=== PATIENT | male | born 1975 | race American Indian/Alaskan Native ===

== ENCOUNTER 2018-05-11 14:21 | Emergency (ER) | payer BC ==
[2018-05-11 14:58] LABS: ABS Basophils 0.1 10^3/ul (0-0.2); ABS Eosinophils 0 10^3/ul (0-0.6); ABS Monocytes 0.5 10^3/ul (0-0.8); ABS Neutrophils 5.9 10^3/ul (1.5-7.7); ABS Nucleated RBC 0 10^3/ul; Eosinophil % 0.2 % (0-6); Hematocrit 44 % (42-52); Hemoglobin 15.1 g/dl (14.0-18.0); Mean Corpuscular HGB Conc 35 g/dl (31-36); Mean Corpuscular Hemoglobin 30 pg (27-31); Mean Corpuscular Volume 86 fL (80-94); Mean Platelet Volume 7.2 um3 (7.4-10.4); Nucleated Red Blood Cells % 0.2; Platelet Count 253 10^3/ul (150-450); Red Blood Count 5.12 10^6/ul (4.0-5.4); Red Cell Distribution Width 12 % (10.5-15); White Blood Count 7.4 10^3/ul (3.5-10.8)
[2018-05-11 15:09] LABS: INR 1.01 (0.77-1.02)
[2018-05-11 15:15] LABS: EGFR Non-African American 84.9 (>60)
--- NOTE | 2018-05-11 16:15 | RAD ---
INDICATION: Chest pain and palpitations COMPARISON: None TECHNIQUE: Single AP portable view of the chest was obtained. FINDINGS: Image quality is compromised due to the relative inferiority of a portable chest x-ray. The heart and mediastinum exhibit normal size and contour. The lungs are grossly clear. There is no evidence of a large pleural effusion. Visualized bones are normal for the patient's age. IMPRESSION: No radiographic evidence for acute cardiopulmonary abnormality on this portable chest x-ray.
[2018-05-11 17:18] LABS: Urine Appearance Clear; Urine Blood Negative (Negative); Urine Color Straw; Urine Ketones 1+ (Negative); Urine Protein Negative (Negative); Urine Specific Gravity 1.006 (1.010-1.030); Urine Urobilinogen Negative (Negative)
[2018-05-11 19:03] VITALS: BP 150/94
--- NOTE | 2018-05-12 01:40 | ED ---
Hany Paredes Gabriel, scribed for Marcella Ballard MD on 05/11/18 at 1607 . Palpitations / Dysrhythmia - HPI Summary HPI Summary: This patient is a 42 year old M BIBA to [facility] accompanied by his with a chief complaint of palpitations that occurred at 1300 today and lasted 5-10 minutes. The patient has been wearing a Holter monitor for three weeks that was ordered through [facility] by his family practice PCP. Today the patient was jogging at 1300 when he began having hard beats that were accompanied by pain as well as a feeling of racing which is unusual for him. He states he usually does not have a series of painful beats just a single one and this is why he has been wearing a Holter monitor. The patient rates the pain 0/ 10 in severity at this time. Pt runs twice a week but states the palpitations do not occur every run. The beats are not associated with exertion and will happen at rest. He has not seen a cook manager for this issue yet, is scheduled to see Dr. Rose after the Holter monitor is completed. - History of Current Complaint Chief Complaint: EDDysrhythmPalp Time Seen by Provider: 05/11/18 14:38 Hx Obtained From: Patient, Family/Operations General Agent, EMS Onset/Duration: Sudden Onset - today while running, Lasting Hours - today, but has had palpitations for weeks, Still Present Timing: Constant Severity Initially: Moderate Severity Currently: None Character: Pounding Aggravating: Exertion Alleviating: Nothing Associated Signs & Symptoms: Negative - Allergy/Home Medications Allergies/Adverse Reactions: Allergies Allergy/AdvReac Type Severity Reaction Status Date / Time No Known Allergies Allergy Verified 05/11/18 14:23 PMH/Surg Hx/FS Hx/Imm Hx Previously Healthy: Yes Cardiovascular History: Denies: Hx Cardiomegaly, Hx Congestive Heart Failure Respiratory History: Denies: Hx Chronic Obstructive Pulmonary Disease (COPD), Hx Sleep Apnea GI History: Denies: Hx Gastroesophageal Reflux Disease History: Denies: Hx Benign Prostatic Hyperplasia Neurological History: Denies: Hx Dementia, Hx Developmental Delay Psychiatric History: Denies: Hx Inpatient Treatment - Surgical History Surgery Procedure, Year, and Place: none Infectious Disease History: No Infectious Disease History: Denies: Traveled Outside the [place] in Last 30 Days - Family History Known Family History: Negative: Seizure Disorder, Blood Disorder - Social History Lives: With Family Alcohol Use: Weekly Substance Use Type: Reports: None Smoking Status (MU): Never Smoked Tobacco Review of Systems Constitutional: Negative Positive: Palpitations, Chest Pain Respiratory: Negative Gastrointestinal: Negative Musculoskeletal: Negative Skin: Negative Neurological: Negative Negative: Slurred Speech Psychological: Normal All Other Systems Reviewed And Are Negative: Yes Physical Exam - Summary Physical Exam Summary: Appearance: Well-appearing, moderate pain distress, well-nourished Skin: Warm, color reflects adequate perfusion, dry Head: Normal Head/Face inspection, atraumatic Eyes: Conjunctiva clear ENT: Normal inspection Neck: Supple, no nodes, no JVD Respiratory: Lungs clear, normal breath sounds, no respiratory distress Cardio: RRR, No murmur, pulses normal, brisk capillary refill, hypertensive Abdomen: Soft, nontender Bowel sounds: Present Musculoskeletal: Strength Intact/ROM intact, no calf tenderness, no edema. Psychological: Normal Neuro: Alert, muscle tone normal, no focal deficit Triage Information Reviewed: Yes Vital Signs On Initial Exam: Initial Vitals Temp Pulse Resp BP Pulse Ox 99.3 F 95 16 134/95 100 05/11/18 14:26 05/11/18 14:26 05/11/18 14:26 05/11/18 14:26 05/11/18 14:26 Vital Signs Reviewed: Yes Diagnostics - Vital Signs Vital Signs Temp Pulse Resp BP Pulse Ox 05/11/18 15:50 10 05/11/18 14:26 99.3 F 95 16 134/95 100 - Laboratory Lab Results: Lab Results 05/11/18 05/11/18 05/11/18 Range/Units 14:52 14:52 14:52 WBC 7.4 (3.5-10.8) 10^3/ul RBC 5.12 (4.0-5.4) 10^6/ul Hgb 15.1 (14.0-18.0) g/dl Hct 44 (42-52) % MCV 86 (80-94) fL MCH 30 (27-31) pg MCHC 35 (31-36) g/dl RDW 12 (10.5-15) % Plt Count 253 (150-450) 10^3/ul MPV 7.2 L (7.4-10.4) um3 Neut % (Auto) 78.9 (38-83) % Lymph % (Auto) 14.0 L (25-47) % [place] % (Auto) 6.2 (0-7) % Eos % (Auto) 0.2 (0-6) % Baso % (Auto) 0.7 (0-2) % Absolute Neuts (auto) 5.9 (1.5-7.7) 10^3/ul Absolute Lymphs (auto) 1.0 (1.0-4.8) 10^3/ul Absolute Monos (auto) 0.5 (0-0.8) 10^3/ul Absolute Eos (auto) 0 (0-0.6) 10^3/ul Absolute Basos (auto) 0.1 (0-0.2) 10^3/ul Absolute Nucleated RBC 0 10^3/ul Nucleated RBC % 0.2 INR (Anticoag Therapy) (0.77-1.02) APTT (26.0-36.3) seconds Sodium 139 (139-145) mmol/L Potassium 3.6 (3.5-5.0) mmol/L Chloride 107 (101-111) mmol/L Carbon Dioxide 22 (22-32) mmol/L Anion Gap 10 (2-11) mmol/L BUN 9 (6-24) mg/dL Creatinine 0.97 (0.67-1.17) mg/dL Est GFR ( Amer) 109.2 (>60) Est GFR (Non-Af Amer) 84.9 (>60) BUN/Creatinine Ratio 9.3 (8-20) Glucose 108 H (70-100) mg/dL Lactic Acid 1.9 (0.5-2.0) mmol/L Calcium 9.3 (8.6-10.3) mg/dL Magnesium 1.9 (1.9-2.7) mg/dL Total Bilirubin 0.50 (0.2-1.0) mg/dL AST 14 (13-39) U/L ALT 18 (7-52) U/L Alkaline Phosphatase 54 (34-104) U/L Total Creatine Kinase 59 (10-223) U/L CK-MB (CK-2) 0.7 (0.6-6.3) ng/mL Troponin I 0.00 (<0.04) ng/mL B-Natriuretic Peptide ( - 100) pg/mL Total Protein 7.1 (6.4-8.9) g/dL Albumin 4.3 (3.2-5.2) g/dL Globulin 2.8 (2-4) g/dL Albumin/Globulin Ratio 1.5 (1-3) TSH Pending Thyroxine (T4) 8.72 (6.09-12.23) mcg/mL 05/11/18 05/11/18 Range/Units 14:52 14:52 WBC (3.5-10.8) 10^3/ul RBC (4.0-5.4) 10^6/ul Hgb (14.0-18.0) g/dl Hct (42-52) % MCV (80-94) fL MCH (27-31) pg MCHC (31-36) g/dl RDW (10.5-15) % Plt Count (150-450) 10^3/ul MPV (7.4-10.4) um3 Neut % (Auto) (38-83) % Lymph % (Auto) (25-47) % [place] % (Auto) (0-7) % Eos % (Auto) (0-6) % Baso % (Auto) (0-2) % Absolute Neuts (auto) (1.5-7.7) 10^3/ul Absolute Lymphs (auto) (1.0-4.8) 10^3/ul Absolute Monos (auto) (0-0.8) 10^3/ul Absolute Eos (auto) (0-0.6) 10^3/ul Absolute Basos (auto) (0-0.2) 10^3/ul Absolute Nucleated RBC 10^3/ul Nucleated RBC % INR (Anticoag Therapy) 1.01 (0.77-1.02) APTT 30.1 (26.0-36.3) seconds Sodium (139-145) mmol/L Potassium (3.5-5.0) mmol/L Chloride (101-111) mmol/L Carbon Dioxide (22-32) mmol/L Anion Gap (2-11) mmol/L BUN (6-24) mg/dL Creatinine (0.67-1.17) mg/dL Est GFR ( Amer) (>60) Est GFR (Non-Af Amer) (>60) BUN/Creatinine Ratio (8-20) Glucose (70-100) mg/dL Lactic Acid (0.5-2.0) mmol/L Calcium (8.6-10.3) mg/dL Magnesium (1.9-2.7) mg/dL Total Bilirubin (0.2-1.0) mg/dL AST (13-39) U/L ALT (7-52) U/L Alkaline Phosphatase (34-104) U/L Total Creatine Kinase (10-223) U/L CK-MB (CK-2) (0.6-6.3) ng/mL Troponin I (<0.04) ng/mL B-Natriuretic Peptide 17 ( - 100) pg/mL Total Protein (6.4-8.9) g/dL Albumin (3.2-5.2) g/dL Globulin (2-4) g/dL Albumin/Globulin Ratio (1-3) TSH Thyroxine (T4) (6.09-12.23) mcg/mL Result Diagrams: 05/11/18 14:52 05/11/18 14:52 Lab Statement: Any lab studies that have been ordered have been reviewed, and results considered in the medical decision making process. - Radiology CXR Radiology Interpretation Completed By: Radiologist - No radiographic evidence for acute cardiopulmonary abnormality on this portable chest x-ray. ED physician has reviewed this radiology report. - EKG 1848 Cardiac Rate: NL EKG Rhythm: Sinus Rhythm - at [address] Segment: Non-Specific Ectopy: None EKG Interpretation: axis -22, nml AV/IV CT, nml QTc EKG Comparison: Other - no prior to compare Re-Evaluation - Re-Evaluation First Eval Re-Evaluation Time: 18:50 Change: Improved Comment: still feels occasional "hard" palpitations. Advised that labs show no significant abnormality and that we discussed with Dr. Schultz. I contacted the number that is on pt's Holter monitor to learn what rhythm was displayed when pt had these symptoms today while running today approximately 1-2pm, but the call was not answered or returned in the time pt was in the ED. Reassured that no evidence of emergency condition is apparent at this time. Advised to continue wearing Holter monitor and follow up with Dr. Rose as scheduled. Course/Dx - Course Assessment/Plan: An EKG reveals NSR at 93 axis -22, nml AV/IV CT, nml QTc, and nml axis. . CXR reveals, per radiologist, No radiographic evidence for acute cardiopulmonary abnormality on this. portable chest x-ray. Blood work and UA obtained. No acute abnormality apparent at this time. Patient will be discharged. The patient is agreeable with this plan. - Diagnoses Differential Diagnosis/HQI/PQRI: Positive: Cardiomyopathy, Coronary Artery Disease, Hypokalemia, Medication Induced, Myocarditis Provider Diagnoses: Palpitations - Physician Notifications Discussed Care Of Patient With: Keon Schultz Time Discussed With Above Provider: 18:46 Instructed by Provider To: Other - He suggested calling the number on the Holter monitor, but if unable to obtain hx of what the rhythm was, pt may be discharged. Discharge - Sign-Out/Discharge Documenting (check all that apply): Discharge/Admit/Transfer - Discharge Plan Condition: Stable Disposition: HOME Patient Education Materials: Heart Palpitations (ED) Referrals: Patrica Lynn MD [Primary Care Provider] - 2 Days Additional Instructions: RETURN TO THE ER FOR ANY NEW OR WORSENING SYMPTOMS - Billing Disposition and Condition Condition: STABLE Disposition: Home The documentation as recorded by the Hany nath Gabriel accurately reflects the service I personally performed and the decisions made by , Marcella Ballard MD.
== END 2018-05-11 19:02 | disposition home or self-care (01) ==
LOC: ED 14:21
DX: R00.2 Palpitations (principal); R07.9 Chest pain, unspecified
CPT/HCPCS: 36415; 71045; 80053; 81003; 82550; 82553; 83605; 83735; 83880; 84436; 84443; 84484; 85025; 85610; 85730; 93005; 99283